=== PATIENT | female | born 1975 | race Caucasian/White ===

== ENCOUNTER 2024-11-15 09:37 | Emergency (ER) | payer OTHER, SELFPAY ==
[2024-11-15 09:42] VITALS: BP 119/78; PULSE 84; RESP 16; TEMP 36.6; O2SAT 100
--- NOTE | 2024-11-15 10:05 | ED.SKABFB ---
HPI - Skin/Abscess/Foreign Bdy General Chief complaint: Skin/Abscess/Foreign Body Stated complaint: Rash Source: patient Mode of arrival: ambulatory Limitations: no limitations History of Present Illness HPI narrative: 49-year-old female presented for complaint of a painful red rash to the left upper chest near under arm. States it started with itching, and the next day she noticed red painful lesions. Pain extends into the arm and the arm feels heavy. She reports general malaise and diarrhea recently. Also reports increased stress. Smokes 2 PPD. Related Data Allergies Allergy/AdvReac Type Severity Reaction Status Date / Time No Known Allergies Allergy Unverified 11/15/24 09:46 Review of Systems Review of Systems: CONSTITUTIONAL: Denies body aches, fever, chills, or sweats. EYES: Denies visual changes, redness, or discharge. ENT: Denies rhinorrhea, congestion CARDIOVASCULAR: Denies chest pain, palpitations, or edema. RESPIRATORY: Denies cough or dyspnea. GASTROINTESTINAL: Denies abdominal pain, nausea, vomiting, or diarrhea. SKIN: reports painful rash left chest MUSCULOSKELETAL: Denies back pain, joint pain, or myalgia. NEUROLOGIC: Denies headache, numbness, tingling, or weakness. [facility] Social History Social History (Updated 11/15/24 @ 10:11 by Isabella Torres, [employer]) Smoking packs per day: 2 Smoking cigarettes per day: 40.0 Smoking status: Current every day smoker Tobacco type: cigarettes Comments At time of signature, I have reviewed and agree with nursing past medical, surgical, social and family history unless otherwise noted. Please see nursing chart for further information. There is no relevant family history pertinent to the presenting complaint Exam Narrative: GENERAL: Well-appearing HEAD: Normocephalic, atraumatic. EYES: conjunctivae clear, and EOMI. ENT: Mucous membranes moist. Oropharynx without edema, erythema or lesions. NECK: Supple. No lymphadenopathy CHEST: Clear to auscultation. HEART: Regular rate and rhythm. SKIN: Warm, dry. Left upper chest at axilla with localized erythematous vesicles c/w zoster approx 5cm diameter. Tender to touch extending to forearm NEURO: Alert and oriented x3. Course Course Emergency Course: Patient is aware of diagnosis, understands and agrees to treatment plan. Anticipatory guidance given. Patient agrees to follow-up as directed and is aware of reasons to seek care at the emergency department. Portions of this record may have been created with voice recognition software Level of Care: Express Care Visit Vital Signs Vital signs: Vital Signs Temperature 97.8 F 11/15/24 09:42 Pulse Rate 84 11/15/24 09:42 Respiratory Rate 16 11/15/24 09:42 Blood Pressure 119/78 11/15/24 09:42 Pulse Oximetry 100 11/15/24 09:42 Oxygen Delivery Room Air 11/15/24 09:42 Temperature 97.8 F 11/15/24 09:42 Pulse Rate 84 11/15/24 09:42 Respiratory Rate 16 11/15/24 09:42 Blood Pressure 119/78 11/15/24 09:42 Pulse Oximetry 100 11/15/24 09:42 Oxygen Delivery Room Air 11/15/24 09:42 Reviewed MDM - Skin/Abscess/Foreign Bdy MDM Narrative Medical decision making narrative: Discussed physical exam findings c/w zoster left upper chest. Advised supportive measures and signs/symptoms to go to the ER. Pt is appropriate for outpt treatment and f/u. Differential Diagnosis Differential diagnosis: Likely abscess of skin or subcutaneous tissue, viral exanthem, dermatophytosis, urticaria, herpes zoster, cellulitis, eczema, insect bites, impetigo and contact dermatitis Discharge Plan Discharge Clinical Impression: Herpes zoster Patient Disposition: Home Condition: Stable Instructions: Antibiotic Form, Shingles (ED) Additional Instructions: Take medication as directed Keep the lesions covered until they are fully crusted over - you are contagious until they are dried Avoid contact with women or people who have not had chickenpox vaccination. Tylenol 1000mg every 8 hours as needed Follow up with your primary care provider next week. Go to the ER for worsening symptoms or concerns. Patient Language: Greenlandic Prescriptions: New valacyclovir 1 gram tablet 1,000 mg PO Q8H 7 Days Qty: 21 0RF Follow-up/Referrals: Magdiel,MD Ga [Primary Care Provider] - Stand Alone Forms: Work/School Release IP Time of Disposition: 10:08
--- OUTSIDE RECORDS SUMMARY | 2024-11-15 10:17 | XMS_ITS | Encounter Summary ---
Author Organization [facility] Healthcare Address [address] [place] [address] Care Team Providers Care Business And Services Instructor Name Role Phone Saturnino Mccrary MD Unavailable [phone] Ga Veloz MD Primary Care Provider [phone] Encounter Details Date Type Department Care Team (Late st Contact Info) Description 10/14/2024 Results Follow-Up [facility] Gastroenterology at [address] [place] [id number] Kole Ray, [address] [place] [address] Social History Tobacco Use Types Packs/Day Years Used Date Smoking Tobacco: Every Day Cigarettes 1.6 34.3 Started: 1990 Smokeless Tobacco: Never Alcohol Use Standard Drinks/Week Comments Not Currently 0 (1 standard drink = 0.6 oz pur e alcohol) had a glass of wine in october Social Connection and Isolat ion Panel [NHANES] Answer Date Recorded In a typical week, how many times do you talk on the phone with family, friends, or neighbors? More than three times a week 02/07/2020 How often do you get togethe r with friends or relatives? More than three times a week 02/07/2020 Attends Sabianism Services Not on file 02/06 Do you belong to any clubs o r organizations such as orthodoxy groups, unions, fraternal or athletic groups, or school groups? Yes 02/07/2020 Attends Club or Organization Meetings Not on padmini e 02/07/2020 Marital Status Not on file 02/07/2020 AUDIT-C Answer Date Recorded Q1: How often do you have a drink containing alc ohol? 2-4 times a month 10/12/2024 Q2: How many drinks containi ng alcohol do you have on a typical day when you are drinking? 5 or 6 10/12/2024 Frequency of Binge Drinking Not on file 07/2024 PHQ-2 Answer Date Recorded PHQ-2 Total Score (If total score is 3 or more points, staff should administer the PHQ-9) 0 05/04/2024 Personal Safety Answer Date Recorded Have you ever been in or are you currently in a harmful physical or emotional relationship or is someone making you feel afraid or unsafe? Denies 10/13/2024 Comments No Sex and Gender Information Value Date Recorded Sex Assigned at Not on file Legal Sex Female 8:03 PM [employer] Gender Identity Not on file Sexual Orientation Not on file documented as of this encounter Miscellaneous Notes * Result Encounter Note - Carl Patel MA - 10/18/2024 8:02 AM CDT Results have been mailed, recall scheduled * Result Encounter Note - Carl Patel MA - 10/14/2024 1:25 PM CDT Called pt at [id number] unable to lvm documented in this encounter Plan of Treatment Not on file documented as of this encounter Visit Diagnoses Not on filedocumented in this encounter Care Teams Business And Services Instructor Relationship Specialty Start Date End Date Ga Veloz MD [address] [place] [address] PCP - General Family Medicine 04/23/23 Saturnino Mccrary MD [address] [place] [address] Filling Station Attendant Obstetrics and Gynecology 02/08/20 documented as of this encounter
--- OUTSIDE RECORDS SUMMARY | 2024-11-15 10:17 | XMS_ITS | Encounter Summary ---
Author Organization [facility] Healthcare Address [address] [place] [address] Care Team Providers Care Teaching Aide Name Role Phone No, Physician Primary Care Provider [phone] Saturnino Mccrary MD Unavailable [phone] Ga Veloz MD Primary Care Provider [phone] Encounter Details Date Type Department Care Team (Late st Contact Info) Description 02/07/2020 Social Work [facility] [address] [place], [place] [phone] Kathy Artis, TR Social History Tobacco Use Types Packs/Day Years Used Date Smoking Tobacco: Every Day Cigarettes 1.6 15 Alcohol Use Standard Drinks/Week Comments Not Currently [...] than three times a week 02/07/2020 Attends Ep[employer]opalian Services Not on file 02/06 Do you belong to any clubs o r organizations such as baptist groups, unions, fraternal or athletic groups, or school groups? 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
--- OUTSIDE RECORDS SUMMARY | 2024-11-15 10:17 | XMS_ITS | Clinical Summary ---
Author Organization [facility] Address [address] [place] [address] Care Team Providers Care Handicrafts Teacher Name Role Phone Saturnino Mccrary MD Unavailable Dirk Veloz MD Primary Care Provider [phone] Allergies Active Allergy Reactions Criticality Noted Date Comments Sulfa (Sulfonamide Antibiotics) Rash Medium Medications No known medications Active Problems Problem Noted Date Diagnosed Date Family hx of colon cancer requiring screening co lonoscopy 05/28/2024 Screening for colon cancer 05/28/2024 Current smoker 04/23/2023 Assessment & Plan (05/04/2024 2:03 PM CDT): Recommend quitting now Anxiety 04/23/2023 Assessment & Plan (05/04/2024 2:03 PM CDT): Recommend therapy Sx are worsening at this time Annual physical exam 04/23/2023 Assessment & Plan (05/04/2024 2:03 PM CDT): Discussed lifestyle modifications, diet and exercise. Routine blood work ordered/reviewed today. Yearly vision and dental examinations. Assessment & Plan (04/23/2023 2:56 PM CDT): Discussed lifestyle modifications, diet and exercise. Routine blood work ordered/reviewed today. Yearly vision and dental examinations. Hirsutism 04/23/2023 Encounters Date Type Department Care Team Description 10/14/2024 Results Follow-Up [facility] Gastroenterology at [address] [place] [address] Kole Ray, 10/13/2024 11:00 AM CDT - 10/13/2024 11:30 AM CDT Surgery [address] [address] Kole Ray, DO COLON REMOVAL SNARE 10/13/2024 10:49 AM CDT Anesthesia Event [address] [address] Иван Fairbanks MD 10/13/2024 10:02 AM CDT - 10/13/2024 11:59 AM CDT Hospital Encounter [address] [address] Kole Ray, DO Family hx of colon cancer requiring screening colonoscopy; Screening for colon cancer Discharge Disposition: Discharge to home or self care 10/12/2024 Telephone [facility] Gastroenterology at [address] [place] [address] Veronica Berrios MA 09/30/2024 Orders Only [facility] Primary Care at [address] [address] Dirk Veloz MD Abnormal mammogram (Primary Dx) 09/27/2024 Orders Only [facility] Primary Care at [address] [address] Dirk Veloz MD Abnormal mammogram (Primary Dx) 09/23/2024 Telephone [facility] Primary Care at [address] [address] Dirk Veloz MD Additional Services Or Orders 09/09/2024 Results Follow-Up [facility] Primary Care at [address] [address] Dirk Veloz MD 09/08/2024 2:33 PM FARM DEMONSTRATOR - 09/08/2024 11:59 PM FARM DEMONSTRATOR Hospital Encounter [address] [address] Abnormal mammogram Discharge Disposition: Discharge to home or self care 09/08/2024 2:33 PM FARM DEMONSTRATOR - 09/08/2024 11:59 PM FARM DEMONSTRATOR Hospital Encounter [facility] [address] [place] [address] Abnormal mammogram Discharge Disposition: Discharge to home or self care 09/02/2024 Orders Only [facility] Primary Care at [address] [place] [address] Dirk Veloz MD Abnormal mammogram (Primary Dx) 08/30/2024 Results Follow-Up [facility] Primary Care at [address] [place] [address] Dirk Veloz MD 08/26/2024 2:25 PM FARM DEMONSTRATOR - 08/26/2024 11:59 PM FARM DEMONSTRATOR Hospital Encounter [facility] [address] [place] [address] Encounter for screening mammogram for malignant neoplasm of breast Discharge Disposition: Discharge to home or self care from Last 3 Months Immunizations Immunization Administration Dates Next Due Influenza, Unspecified 05/04/2024(Deferr ed: Patient Refused),04/23/2023(Deferred: Patient Refused),04/23/2022(Deferred: Patient Refused) Tdap 12/07/2019 Surgical History Surgery Date Site/Laterality Comments SECTION, LOW TRANSVERSE 10/18/2010 COLONOSCOPY 10/13/2024 Medical History Medical History Date Comments ANA PAULA (generalized anxiety disorder) Tobacco abuse Adenomatous colon polyp Family History Medical History Relation Name Comments Prostate cancer Father Hypertension Mother Lung cancer Mother Colon cancer Paternal Grandmother Endometriosis Sister [place] Breast cancer Neg Hx Relation Name Status Comments Father Alive Mother Alive Paternal Grandfather Paternal Grandmother Sister [place] Alive Social History Tobacco Use Types Packs/Day Years Used Date Smoking Tobacco: Every Day Cigarettes 1.6 34.3 Started: 1990 Smokeless Tobacco: Never Tobacco Cessation:Ready to Q uit: Not Asked; Counseling Given: Not Answered Alcohol Use Standard Drinks/Week Comments Not Currently [...] than three times a week 02/07/2020 Attends Worship Services Not on file 02/06 Do you belong to any clubs o r organizations such as rastafarian groups, unions, fraternal or athletic groups, or [...] on file Legal Sex Female 8:03 PM FARM DEMONSTRATOR Gender Identity Not on file Sexual Orientation Not on file Obstetrics History Para Term AB IAB SAB Ectopic Multiple Livin g Live Births 3 2 2 1 0 2 2 Date Outcome GA Total Labor Labor/2nd/3rd Weight Sex Type Anes PTL Unique A1 A5 Name Clin AB 2010 Term 37w 0d M CS-LT ranv Spinal Livin g 2019 Term 38w 6d 0h 02m 0h 02m 3.124 kg (6 lb 14.2 oz) F CS-LT ranv Spinal N Livin g 8 9 TAPPY ,GIRL Saturnino Keen MD Complications:None Delivery Location:This Facil ity ([facility] L AND D PROCEDURE) Last Filed Vital Signs Vital Sign Reading Time Taken Comments Blood Pressure 126/84 10/13/2024 11:53 AM CDT Pulse 71 10/13/2024 11:53 AM CDT Temperature 36.7 C (98 F) 10/13/2024 11:53 AM CDT Respiratory Rate 16 10/13/2024 11:53 AM CDT Oxygen Saturation 97% 10/13/2024 11:53 AM CDT Inhaled Oxygen Concentration - - Weight 54 kg (119 lb 0.8 oz) 10/13/2024 10:10 AM CDT Height 167.6 cm (5' 5.98 ) 10/13/2024 10:10 AM C DT Body Mass Index 19.22 10/13/2024 10:10 AM CDT Plan of Treatment Health Maintenance Due Date Last Done Comments Hepatitis C Screening 1975 Hepatitis B Screening 1995 Pneumococcal vaccine <65 (1 of 2 - PCV) 1996 Influenza Vaccine (Season Ended) 2025 Cervical Cancer Screening 04/23/2025 04/23/2020 Depression Screening 05/04/2025 05/04/2024, 04/23/20 Regular Well Visit/Exam 18-64 05/04/2025 05/04/2024, 04/23/2023 Breast Cancer Screening-Mammogram 09/08/2025 025, 08/26/2024 DTaP/Tdap/Td Vaccine (2 - Td or Tdap) 12/06/2029 Colon Cancer Screening-Colonoscopy 10/13/20342024 Procedures Procedure Name Priority Date/Time Associated Diagnosis Comments SURGICAL PATHOLOGY STAT 10/13/2024 1: 54 PM CDT Family hx of colon cancer requiring screening colonoscopy Screening for colon cancer COLON REMOVAL SNARE 10/13/2024 1 0:37 AM CDT Family hx of colon cancer requiring screening colonoscopy Screening for colon cancer COLONOSCOPY 10/13/2024 10:35 AM CDT POCT HCG, URINE Routine 10/13/2024 10:23 AM CDT US BREAST LEFT LIMITED Schedule Routine, Read Routine (OP Routine) 09/08/2024 3:47 PM FARM DEMONSTRATOR Abnormal mammogram DIAGNOSTIC MAMMOGRAM BILATERAL W AXEL Schedule Routine, Read Routine (OP Routine) 09/08/2024 2:56 PM FARM DEMONSTRATOR Abnormal mammogram SCREENING MAMMOGRAM BILATERAL W AXEL Schedule Routine, Read Routine (OP Routine) 08/26/2024 2:47 PM FARM DEMONSTRATOR Encounter for screening mammogram for malignant neoplasm of breast HM PAP SMEAR WITH HPV Routine 04/23/2020 from Last 3 Months or Most Recently Relevant to Health Maintenance Results * Surgical pathology (10/13/2024 1:54 PM CDT) Tissue (Polyp(s), colon/colorectal, esophageal, gastric) 10/13/2024 11:17 AM CDT Narrative PATHOLOGY [facility] - 10/14/2024 12:41 PM CDT EPIC results best viewed via link to PDF [facility] Department of Pathology [address] [place] [address] Note to Patients: This report may contain a detailed description of human tissue sent by a health care provider to the laboratory for pathologic evaluation. The content of this report is essential for diagnosis and may provide important critical findings. This information may be unfamiliar to patients to review without a medical professional present. It is advised that the patient review this report in the presence of a health care provider who can answer questions and explain the details. Final Report Patient Name: KIM ACEVEDO Address: [address] [place], [place] [id number] Gender: F : 1975 (Age: 49) Service: Gastro Location: [facility] Hospital #: [id number] Patient Type: [facility] Taken: 10/13/2024 Received: 10/13/2024 Accessioned: 10/13/2024 Reported: 10/14/2024 Physician(s):Dr. Kole Ray, D.O. Diagnosis: Colon, cecum and descending, biopsies: - Tubular adenoma fragments. - No evidence of high-grade dysplasia or malignancy. Wayne John MD Report Electronically Reviewed and Signed Out By Wayne John MD 10/14/2024 12:41:38 Specimen(s) Received: A: Cecum colon polyp x 1, descending colon polyp x 1 Microscopic Description: Microscopic examination shows four polypoid fragments of colonic mucosa, three of which show adenomatous mucosal changes consistent with tubular adenoma fragments. There is no evidence of high-grade dysplasia or malignancy. Clinical History: Family history of colon cancer. Screening colonoscopy. Gross Description: The specimen is submitted in a single formalin filled container labeled KIM TAPPY and cecum colon polyp x1, descending colon polyp x1 . It is 4 fragments of costello tissue between 1 and 4 mm. All in one cassette. Xiang Mcbride R.N., P.A./Rambo Boswell M.D. REPORT IMAGES AND SCANNED DOCUMENTS, IF INCLUDED, ONLY VIEWABLE IN PDF VERSION OF REPORT The performance characteristics of some immunohistochemical stains, fluorescence in-situ hybridization tests and immunophenotyping by flow cytometry cited in this report (if any) were determined by the Surgical Pathology Department at [facility] as part of an ongoing senior quality technician program and in compliance with federally mandated regulations drawn from the Clinical Laboratory Improvement Act of 1988 (CLIA '88). Some of these tests rely on the use of analyte specific reagents and are subject to specific labeling requirements by the US Food and Drug Administration. Such diagnostic tests may only be performed in a facility that is certified by the Department of Health and Human Services as a high complexity laboratory under CLIA '88. The FDA has determined that such clearance or approval is not necessary. This test is used for clinical purposes. It should not be regarded as investigational or for research. Nevertheless, federal rules concerning the medical use of analyte specific reagents require that the following disclaimer be attached to the report: This test was developed and its performance characteristics determined by the Surgical Pathology Department [facility]. It has not been cleared or approved by the U. S. Food and Drug Administration. Note for decalcified specimens: This assay has not been validated on decalcified tissues. Results should be interpreted with caution given the possibility of false negativity on decalcified specimens us Kole Ray DO LAB PATHOLOGY ORDERABLES Final Result PATHOLOGY [facility] [address] [place], [place] [address] * Colonoscopy (10/13/2024 10:35 AM CDT) Anatomical Region Laterality Modality Other Narrative Procedure Note Kole Ray DO - 10/13/2024 10:35 AM CDT [facility] Patient Name: Kim Acevedo Procedure Date: 10/13/2024 10:35 AM Date of : 1975 Admit Type: Outpatient Age: 49 Gender: Female Attending MD: Kole Ray D.O. Room: [facility] ENDOSCOPY ROOM 3 Note Status: Finalized Patient Profile: Refer to note in patient chart for documentation of history and physical. Procedure: Colonoscopy Indications: Screening for colorectal malignant neoplasm, Thisis the patient's first colonoscopy Referring MD: Dirk Veloz M.D. Providers: Kole Ray D.O. Impression: - The examined portion of the ileum was normal. - One 5 mm polyp in the cecum, removed with a cold snare. Resected and retrieved. Clip (MRconditional) was placed. Clip php architect: [id number]. - One 4 mm polyp in the proximal descending colon, removed with a cold snare. Resected andretrieved. - Diverticulosis in the sigmoid colon. Recommendation: - Discharge patient to home. - Resume previous diet. - Continue present medications. - Await pathology results. - Repeat colonoscopy in 5 years for surveillance. - Return to primary care physician PRN. Medicines: Monitored Anesthesia Care Complications: No immediate complications. Estimated Blood Loss: Estimated blood loss: none. Procedure: Pre-Anesthesia Assessment: - As per anesthesia. The benefits, risks and alternatives of theprocedure and sedation were discussed and informed consentwas obtained. All questions were answered. Please referto the signed informed consent document in the medical record. The bowel preparation used was Miralax and bisacodyl tablets via split dose instruction. The scope was passed under direct vision. The Pediatric Colonoscope [id number] was introducedthrough the anus and advanced to the 5 cm into the ileum.The colonoscopy was performed without difficulty. The patient tolerated the procedure well. The qualityof the bowel preparation was adequate. The terminal ileum, ileocecal valve, appendiceal orifice, and rectum were photographed. Findings: The perianal and digital rectal examinations were normal. The terminal ileum appeared normal. A 5 mm polyp was found in the cecum. The polyp was sessile. The polyp was removed with a cold snare. Resection and retrieval were complete.To prevent bleeding post-intervention, one hemostatic clip wassuccessfully placed (MR conditional). Clip php architect: [email or web address]. Therewas no bleeding at the end of the procedure. A 4 mm polyp was found in the proximal descending colon. The polypwas removed with a cold snare. Resection and retrieval were complete. Many diverticula were found in the sigmoid colon. No additional abnormalities were found on retroflexion. Electronically signed by Kole Ray M.D. Kole Ray D.O. 10/13/2024 11:21:04 AM Number of Addenda: 0 Note Initiated On: 10/13/2024 10:35 AM Procedure Code(s): --- Professional --- 07324, Colonoscopy, flexible; with removal of tumor(s), polyp(s), or other lesion(s) by snare technique --- Technical --- 71089, Colonoscopy, flexible; with removal of tumor(s), polyp(s), or other lesion(s) by snare technique Diagnosis Code(s): --- Professional --- Z12.11, Encounter for screening for malignant neoplasm of colon D12.0, Benign neoplasm of cecum D12.4, Benign neoplasm of descending colon K57.30, Diverticulosis of large intestine without perforation orabscess without bleeding --- Technical --- Z12.11, Encounter for screening for malignant neoplasm of colon D12.0, Benign neoplasm of cecum D12.4, Benign neoplasm of descending colon K57.30, Diverticulosis of large intestine without perforation orabscess without bleeding CPT copyright 2020 [employer]. All rights reserved. The codes documented in this report are preliminary and upon application security architect reviewmay be revised to meet current compliance requirements. Recognized by the [employer] for promoting quality in endoscopy us Kole Ray DO ENDOSCOPY PROCEDURES Final Res ult * POCT hCG, urine (10/13/2024 10:23 AM CDT) HCG, ur, POC Negative Negative Lot Number [id number] QC Backgroud Clear Acceptable QC Control Line Acceptable Urine 10/13/2024 10:2 3 AM CDT us Kole Ray DO POINT OF CARE TEST ORDERABLES Final Result * US Breast Left Limited (09/08/2024 3:47 PM FARM DEMONSTRATOR) Anatomical Region Laterality Modality Breast Left Ultrasound 09/08/2024 3:57 PM FARM DEMONSTRATOR Impressions 09/08/2024 3:57 PM FARM DEMONSTRATOR No persistent asymmetry is seen within the right breast. In the left breast, the mammographic lesion seen in the upper outer breast posteriorly and in the upper inner left breast on the craniocaudal view as well as a sonographic lesion at the 11 o'clock position, 5 cm from nipple are probably benign. A follow-up left diagnostic mammogram and ultrasound are recommended in 6 months. BI-RADS: 3 - Probably benign The patient has been or will be contacted. The patient will be entered into a reminder system with a target due date of 6 months for her next examinations. Electronically signed by: Janelle Wilson M.D. Narrative 09/08/2024 3:57 PM FARM DEMONSTRATOR EXAMINATION: DIAGNOSTIC MAMMOGRAM BILATERAL W AXEL, US BREAST LEFT LIMITED ORDERING HEALTHCARE PROVIDER: DIRK VELOZ HISTORY: Abnormal screening mammogram. COMPARISON: 08/26/2024 TECHNIQUE: CC and MLO spot compression and lateral views of the Bilateral breasts were obtained with digital technique using breast tomosynthesis with C view. Computer aided detection was utilized. This was followed by targeted left breast sonography. FINDINGS: There are scattered areas of fibroglandular density. Additional views of both breasts were obtained. No persistent asymmetry is seen in the right breast on the MLO view. Within the left breast, there are persistent focal asymmetries in the upper outer left breast posteriorly and in the posterior medial left breast. Further evaluation was obtained with sonography. Targeted left breast ultrasound: At the 11 o'clock position of the left breast, 5 cm from the nipple, there is a 4 mm hypoechoic lesion within dense breast tissue which is likely a complex cyst. It is unlikely that this corresponds to the mammographic findings. The mammographic and sonographic lesions in the left breast will be classified as probably benign. us Dirk Veloz MD IMG MAMMO PROCEDURES Final Resul t * Diagnostic Mammogram Bilateral W Axel (09/08/2024 2:56 PM FARM DEMONSTRATOR) Anatomical Region Laterality Modality Breast Bilateral Mammography 09/08/2024 3:57 PM FARM DEMONSTRATOR Impressions 09/08/2024 3:57 PM FARM DEMONSTRATOR No persistent asymmetry is seen within the right breast. In the left breast, the mammographic lesion seen in the upper outer breast posteriorly and in the upper inner left breast on the craniocaudal view as well as a sonographic lesion at the 11 o'clock position, 5 cm from nipple are probably benign. A follow-up left diagnostic mammogram and ultrasound are recommended in 6 months. BI-RADS: 3 - Probably benign The patient has been or will be contacted. The patient will be entered into a reminder system with a target due date of 6 months for her next examinations. Electronically signed by: Ayan Caputo 09/08/2024 3:57 PM FARM DEMONSTRATOR EXAMINATION: DIAGNOSTIC MAMMOGRAM BILATERAL W AXEL, US BREAST LEFT LIMITED ORDERING HEALTHCARE PROVIDER: DIRK VELOZ HISTORY: Abnormal screening mammogram. COMPARISON: 08/26/2024 TECHNIQUE: CC and MLO spot compression and lateral views of the Bilateral breasts were obtained with digital technique using breast tomosynthesis with C view. Computer aided detection was utilized. This was followed by targeted left breast sonography. FINDINGS: There are scattered areas of fibroglandular density. Additional views of both breasts were obtained. No persistent asymmetry is seen in the right breast on the MLO view. Within the left breast, there are persistent focal asymmetries in the upper outer left breast posteriorly and in the posterior medial left breast. Further evaluation was obtained with sonography. Targeted left breast ultrasound: At the 11 o'clock position of the left breast, 5 cm from the nipple, there is a 4 mm hypoechoic lesion within dense breast tissue which is likely a complex cyst. It is unlikely that this corresponds to the mammographic findings. The mammographic and sonographic lesions in the left breast will be classified as probably benign. us Dirk Veloz MD IMG MAMMO PROCEDURES Final Resul t * (ABNORMAL) SCREENING MAMMOGRAM BILATERAL W AXEL (08/26/2024 2:47 PM FARM DEMONSTRATOR) Anatomical Region Laterality Modality Breast Bilateral Mammography 08/26/2024 4:01 PM FARM DEMONSTRATOR Impressions 08/26/2024 4:01 PM FARM DEMONSTRATOR Bilateral breast asymmetries require further evaluation with additional mammographic images and possible sonography. BI-RADS: BI-RADS Category 0: Incomplete - Need Additional Imaging Evaluation. The patient has been or will be contacted Electronically signed by: Janelle Wilson M.D. Narrative 08/26/2024 4:01 PM FARM DEMONSTRATOR EXAMINATION: SCREENING MAMMOGRAM BILATERAL W AXEL ORDERING HEALTHCARE PROVIDER: DIRK VELOZ HISTORY: Routine screening mammography. COMPARISON: None TECHNIQUE: CC and MLO views of the bilateral breasts were obtained with digital technique using breast tomosynthesis with C view. Computer aided detection was utilized. FINDINGS: DENSITY: There are scattered areas of fibroglandular density. BREASTS: There is a focal asymmetry at the 1 to 2 o'clock position of the left breast posteriorly. There is also an asymmetry in the slightly medial posterior left breast seen on the craniocaudal view. There is also an asymmetry in the superior right breast seen on the MLO view, middle depth. There are no other suspicious masses, suspicious calcifications, or other suspicious findings in either breast. There has been no other suspicious interval change. Dirk Veloz MD IMG MAMMO PROCEDURES Final Resul t * HM PAP SMEAR WITH HPV (04/23/2020) Historical Provider HEALTH MAINTENANCE Final Result from Last 3 Months or Most Recently Relevant to Health Maintenance Insurance Advance Directives For more information, please contact: [phone] * Full Code (Latest Code Status on File) Date Activated Date Inactivated Comments 10/13/2024 10:07 AM 10/13/2024 4:04 PM * Full Code Date Activated Date Inactivated Comments 10/13/2024 10:07 AM 10/13/2024 10:07 AM * Full Code Date Activated Date Inactivated Comments 02/06/2020 7:01 AM 02/08/2020 2:16 PM * Full Code Date Activated Date Inactivated Comments 02/06/2020 2:14 AM 02/06/2020 7:01 AM Full CPR in case of cardiopulmonary arrest Care Teams Handicrafts Teacher Relationship Specialty Start Date End Date Dirk Veloz MD [address] [place] [address] PCP - General Family Medicine 04/23/23 Saturnino Mccrary MD [address] [place] [address] Yarn Spooler Obstetrics and Gynecology 02/08/20
--- OUTSIDE RECORDS SUMMARY | 2024-11-15 10:17 | XMS_ITS | Referral Summary ---
Author Organization [facility] Address [address] [place] [address] Care Team Providers Care Law Instructor Name Role Phone Saturnino Mccrary MD Unavailable [phone] Dirk Veloz MD Primary Care Provider Encounters Date Type Department Care Team Description 10/14/2024 Results Follow-Up [facility] Gastroenterology at [address] [place] [address] Kole Ray DO 10/13/2024 10:49 AM CDT Anesthesia Event [address] [address] Иван Fairbanks MD 10/13/2024 11:00 AM CDT - 10/13/2024 11:30 AM CDT Surgery [address] [address] Kole Ray, DO COLON REMOVAL SNARE 10/13/2024 10:02 AM CDT - 10/13/2024 11:59 AM CDT Hospital Encounter [address] [address] Kole Ray, DO Family hx of colon cancer requiring screening colonoscopy; Screening for colon cancer Discharge Disposition: Discharge to home or self care 10/12/2024 Telephone [facility] Gastroenterology at [address] [place] [address] Veronica Berrios MA 09/30/2024 Orders Only [facility] Primary Care at [address] [address] Dirk Veloz MD Abnormal mammogram (Primary Dx) 09/27/2024 Orders Only [facility] Primary Care at [address] [address] Dirk Veloz MD Abnormal mammogram (Primary Dx) 09/23/2024 Telephone [facility] Primary Care at [address] [address] Dirk Veloz MD Additional Services Or Orders 09/09/2024 Results Follow-Up [facility] Primary Care at [address] [address] Dirk Veloz MD 09/08/2024 2:33 PM BOARD CERTIFIED BEHAVIORAL ANALYST - 09/08/2024 11:59 PM BOARD CERTIFIED BEHAVIORAL ANALYST Hospital Encounter [address] [address] Abnormal mammogram Discharge Disposition: Discharge to home or self care 09/08/2024 2:33 PM BOARD CERTIFIED BEHAVIORAL ANALYST - 09/08/2024 11:59 PM BOARD CERTIFIED BEHAVIORAL ANALYST Hospital Encounter [address] [address] Abnormal mammogram Discharge Disposition: Discharge to home or self care 09/02/2024 Orders Only [facility] Primary Care at [address] [address] Dirk Veloz MD Abnormal mammogram (Primary Dx) 08/30/2024 Results Follow-Up [facility] Primary Care at [address] [address] Dirk Veloz MD 08/26/2024 2:25 PM BOARD CERTIFIED BEHAVIORAL ANALYST - 08/26/2024 11:59 PM BOARD CERTIFIED BEHAVIORAL ANALYST Hospital Encounter [address] [address] Encounter for screening mammogram for malignant neoplasm of breast Discharge Disposition: Discharge to home or self care from Last 3 Months Allergies Active Allergy Reactions Criticality Noted Date [...] Yearly vision and dental examinations. Hirsutism 04/23/2023 Immunizations Immunization Administration Dates Next Due Influenza, Unspecified 05/04/2024(Deferr ed: Patient Refused),04/23/2023(Deferred: Patient Refused),04/23/2022(Deferred: Patient Refused) Tdap 12/07/2019 Social History Tobacco Use Types Packs/Day Years [...] than three times a week 02/07/2020 Attends Druze Services Not on file 02/06 Do you belong to any clubs o r organizations such as latter day groups, unions, fraternal or athletic groups, or [...] on file Legal Sex Female 8:03 PM BOARD CERTIFIED BEHAVIORAL ANALYST Gender Identity Not on file Sexual Orientation Not on file Last Filed Vital Signs Vital Sign Reading [...] 10/13/2024 10:10 AM CDT Plan of Treatment Not on file Procedures Procedure Name Priority Date/Time Associated Diagnosis [...] Read Routine (OP Routine) 09/08/2024 3:47 PM BOARD CERTIFIED BEHAVIORAL ANALYST Abnormal mammogram DIAGNOSTIC MAMMOGRAM BILATERAL W AXEL Schedule Routine, Read Routine (OP Routine) 09/08/2024 2:56 PM BOARD CERTIFIED BEHAVIORAL ANALYST Abnormal mammogram SCREENING MAMMOGRAM BILATERAL W AXEL Schedule Routine, Read Routine (OP Routine) 08/26/2024 2:47 PM BOARD CERTIFIED BEHAVIORAL ANALYST Encounter for screening mammogram for malignant neoplasm of breast HM PAP SMEAR WITH HPV Routine 04/23/2020 from Last 3 Months or Most Recently Relevant to Health Maintenance Results * Surgical pathology (10/13/2024 1:54 PM CDT) Tissue (Polyp(s), colon/colorectal, esophageal, gastric) 10/13/2024 11:17 AM CDT Narrative PATHOLOGY [facility] - 10/14/2024 12:41 PM CDT EPIC results best viewed via link to PDF [facility] Department of Pathology [address] [place] [address] Note to Patients: This report may contain [...] Final Report Patient Name: KIM ACEVEDO Address: [address] [place] [id number] Gender: F : 1975 (Age: 49) Service: Gastro Location: [facility] #: [id number] Patient Type: [facility] Taken: 10/13/2024 Received: 10/13/2024 Accessioned: 10/13/2024 Reported: 10/14/2024 Physician(s):Dr. Kole Ray D.O. Diagnosis: Colon, cecum and descending, biopsies: [...] and 4 mm. All in one cassette. Xinag Mcbride R.N., P.A./Rambo Boswell M.D. REPORT IMAGES AND SCANNED DOCUMENTS, IF INCLUDED, ONLY VIEWABLE IN PDF VERSION OF REPORT The performance characteristics of some immunohistochemical stains, fluorescence in-situ hybridization tests and immunophenotyping by flow cytometry cited in this report (if any) were determined by the Surgical Pathology Department at [facility] as part of an ongoing research quality assurance analyst program and in compliance with federally mandated [...] characteristics determined by the Surgical Pathology Department [facility]. It has not been cleared or approved by the U. S. Food and Drug Administration. Note for decalcified specimens: This assay has not been validated on decalcified tissues. Results should be interpreted with caution given the possibility of false negativity on decalcified specimens Kole Ray DO LAB PATHOLOGY ORDERABLES Final Result PATHOLOGY [facility] [address] [id number] * Colonoscopy (10/13/2024 10:35 AM CDT) Anatomical Region Laterality Modality Other Narrative Procedure Note Kole Ray DO - 10/13/2024 10:35 AM CDT [facility] Patient Name: Kim Tappy Procedure Date: 10/13/2024 10:35 AM Date of : 1975 Admit Type: Outpatient Age: 49 Gender: Female Attending MD: Kole Ray D.O. Room: [facility] ENDOSCOPY ROOM 3 Note Status: Finalized Patient [...] and retrieved. Clip (MRconditional) was placed. Clip supervisor grove: Soundwave. - One 4 mm polyp in the [...] under direct vision. The Pediatric Colonoscope [id number] was introducedthrough the anus and advanced to [...] hemostatic clip wassuccessfully placed (MR conditional). Clip supervisor grove: Soundwave. Therewas no bleeding at the end of [...] 10:35 AM Procedure Code(s): --- Professional --- 03165, Colonoscopy, flexible; with removal of tumor(s), polyp(s), or other lesion(s) by snare technique --- Technical --- 93333, Colonoscopy, flexible; with removal of tumor(s), polyp(s), [...] perforation orabscess without bleeding CPT copyright 2020 [employer]. All rights reserved. The codes documented in this report are preliminary and upon sales representative metals reviewmay be revised to meet current compliance requirements. Recognized by the [employer] for promoting quality [...] US Breast Left Limited (09/08/2024 3:47 PM BOARD CERTIFIED BEHAVIORAL ANALYST) Anatomical Region Laterality Modality Breast Left Ultrasound 09/08/2024 3:57 PM BOARD CERTIFIED BEHAVIORAL ANALYST Impressions 09/08/2024 3:57 PM BOARD CERTIFIED BEHAVIORAL ANALYST No persistent asymmetry is seen within the [...] Janelle Wilson M.D. Narrative 09/08/2024 3:57 PM BOARD CERTIFIED BEHAVIORAL ANALYST EXAMINATION: DIAGNOSTIC MAMMOGRAM BILATERAL W AXEL, US [...] Mammogram Bilateral W Axel (09/08/2024 2:56 PM BOARD CERTIFIED BEHAVIORAL ANALYST) Anatomical Region Laterality Modality Breast Bilateral Mammography 09/08/2024 3:57 PM BOARD CERTIFIED BEHAVIORAL ANALYST Impressions 09/08/2024 3:57 PM BOARD CERTIFIED BEHAVIORAL ANALYST No persistent asymmetry is seen within the [...] Janelle Wilson M.D. Narrative 09/08/2024 3:57 PM BOARD CERTIFIED BEHAVIORAL ANALYST EXAMINATION: DIAGNOSTIC MAMMOGRAM BILATERAL W AXEL, US [...] breast will be classified as probably benign. Dirk Veloz MD IMG MAMMO PROCEDURES Final Resul t * (ABNORMAL) SCREENING MAMMOGRAM BILATERAL W AXEL (08/26/2024 2:47 PM BOARD CERTIFIED BEHAVIORAL ANALYST) Anatomical Region Laterality Modality Breast Bilateral Mammography 08/26/2024 4:01 PM BOARD CERTIFIED BEHAVIORAL ANALYST Impressions 08/26/2024 4:01 PM BOARD CERTIFIED BEHAVIORAL ANALYST Bilateral breast asymmetries require further evaluation with additional mammographic images and possible sonography. BI-RADS: BI-RADS Category 0: Incomplete - Need Additional Imaging Evaluation. The patient has been or will be contacted Electronically signed by: Janelle Wilson M.D. Narrative 08/26/2024 4:01 PM BOARD CERTIFIED BEHAVIORAL ANALYST EXAMINATION: SCREENING MAMMOGRAM BILATERAL W AXEL ORDERING [...] Most Recently Relevant to Health Maintenance Insurance [facility] Advance Directives For more information, please contact: [phone] * Full Code (Latest Code Status on [...] in case of cardiopulmonary arrest Care Teams Law Instructor Relationship Specialty Start Date End Date Dirk Veloz MD [address] [facility] [address] [place] [address] PCP - General Family Medicine 04/23/23 Saturnino Mccrary MD [address] [facility] [address] [facility] [address] [place] [address] Forms Obstetrics and Gynecology 02/08/20
== END 2024-11-15 10:10 | disposition home or self-care (01) ==
PROVIDERS: Emergency Provider Nurse Practitioner Family; PCP Family Medicine
DX: B02.9 Zoster without complications (principal); F17.210 Nicotine dependence, cigarettes, uncomplicated
CPT/HCPCS: 99203; G0463

== ENCOUNTER 2024-11-23 13:20 | Emergency (ER) | payer OTHER, SELFPAY ==
--- NOTE | 2024-11-23 13:26 | ED_ITS ---
HPI - URI/Sore Throat General Chief Complaint: Upper Respiratory Infection Stated Complaint: Sore throat Time Seen by Provider: 11/23/24 13:26 Source: patient Mode of arrival: ambulatory Limitations: no limitations History of Present Illness HPI Narrative: Kim is a 49-year-old female patient presenting to the clinic today with complaints of sore throat. She reports she is mostly has sore throat on the right side. Also complaining of some pain below the right ear. Symptoms started 2 days ago. Has had some chills but denies fever or body aches. Recently was treated for shingles and just finished her acyclovir. Related Data Allergies Allergy/AdvReac Type Severity Reaction Status Date / Time Sulfa (Sulfonamide Allergy Mild Rash Verified 11/23/24 13:43 Antibiotics) Review of Systems Review of Systems: Pertinent positives per HPI. Patient denies any fever, chills, rash, headache, visual changes, dizziness, cough, shortness of breath, chest pain, palpitations, nausea, vomiting, diarrhea, constipation, abdominal pain, or any urinary issues. PMFSH Social History Social History Smoking packs per day: 2 Smoking cigarettes per day: 40.0 Smoking status: Current every day smoker Tobacco type: cigarettes Comments At the time of my signature, I reviewed and agree with the nursing past medical, surgical, social, and family history. There is no relevant family history pertinent to the patient complaint. Exam Narrative: General: Well-developed, well nourished, in no apparent distress Head: Normocephalic, atraumatic Eyes: Pupils equally round and reactive to light bilaterally, EOM intact, sclera and conjunctive clear, no discharge, lids normal Ears: TMs intact and congestion, tenderness to palpation over the right eustachian tube, ear canals clear, no drainage, grossly hearing normal. Nose: Nares patent, clear nasal discharge, no inflammation, no sinus tenderness. Mouth: Oral pharynx red with bilateral tonsillar swelling right greater the left without lesions or masses, good dentition, MMM. Neck: Supple, trachea midline, no enlargement of anterior or posterior cervical nodes, no thyroid masses or goiter palpable. Cardio: Regular rate and rhythm, s1 and s2 normal, no murmur appreciated. Resp: Clear to auscultation bilaterally, no rhonchi, rales, wheezing or rubs Course Course Emergency Course: Portions of this record may have been created with voice recognition software. Level of Care: Express Care Visit Vital Signs Vital signs: Vital Signs Temperature 37.1 C 11/23/24 13:30 Pulse Rate 97 11/23/24 13:30 Respiratory Rate 16 11/23/24 13:30 Blood Pressure 125/83 11/23/24 13:30 Pulse Oximetry 99 11/23/24 13:30 Oxygen Delivery Room Air 11/23/24 13:30 Temperature 37.1 C 11/23/24 13:30 Pulse Rate 97 11/23/24 13:30 Respiratory Rate 16 11/23/24 13:30 Blood Pressure 125/83 11/23/24 13:30 Pulse Oximetry 99 11/23/24 13:30 Oxygen Delivery Room Air 11/23/24 13:30 Vital signs reviewed MDM - URI/Sore Throat MDM Narrative Medical decision making narrative: At the time of visit patient is resting comfortably on the exam table. Patient appears to be nontoxic. Labs: Strep test was negative in the clinic today. We will send strep for culture. Plan: I suspect patient has pharyngitis/eustachian tube dysfunction. Prescription for prednisone was sent to the pharmacy. Supportive measures were discussed with the patient and they voiced understanding discharge instructions and agrees to treatment plan. Return precautions reviewed Differential Diagnosis Differential diagnosis: Likely upper respiratory infection, otitis media, sinusitis, viral infection, bronchitis, influenza, pharyngitis and other (COVID) Lab Data Labs: Lab Results 11/23/24 Range/Units 13:36 POC Grp A Strep Screen Negative (Negative) Discharge Plan Discharge Clinical Impression: Acute dysfunction of right eustachian tube Pharyngitis Qualifiers: Pharyngitis/tonsillitis etiology: unspecified etiology Qualified Code(s): J02.9 - Acute pharyngitis, unspecified Patient Disposition: Home Condition: Stable Instructions: Antibiotic Form, Pharyngitis (ED), Earache (ED) Additional Instructions: Strep test was negative in the clinic today. We will send strep for culture if this comes back positive we will contact you in place you on antibiotics at that time. Take prescription medications only as prescribed-prednisone Increase fluids and stay well hydrated Tylenol/motrin for pain/fever Flonase and OTC antihistamines as directed Vicks vapor rub to open sinuses Sinus rinses for congestion Cepacol spray, cough drops, throat lozenges, warm tea with honey/lemon, gargle salt water to soothe throat BRAT diet for diarrhea Clear liquids x 24 hours then advance as tolerated for nausea/vomiting Go to the ED if you develop a worsening in your condition- high fever not controlled by Tylenol or Motrin, dehydration, weakness, lethargy, shortness of breath, or chest pain. Follow up with your PCP in 3-5 days if symptoms persist. Patient Language: Tamazight Prescriptions: New prednisone 20 mg tablet 40 mg PO DAILY 5 Days Qty: 10 0RF Follow-up/Referrals: Magdiel,MD Ga [Primary Care Provider] - Time of Disposition: 13:48 Quality NIHSS Nursing Documentation ED NIHSS nursing documentation: reviewed/agree
[2024-11-23 13:30] VITALS: BP 125/83; PULSE 97; RESP 16; TEMP 37.1; O2SAT 99
--- OUTSIDE RECORDS SUMMARY | 2024-11-23 13:43 | XMS_ITS | Encounter Summary ---
Author Organization [facility] Healthcare Address [address] [place] [address] Care Team Providers Care Senior Quality Manager Name Role Phone No, Physician Primary Care Provider [phone] Saturnino Mccrary MD Unavailable [phone] Ga Veloz MD Primary Care Provider [phone] Encounter Details Date Type Department Care Team (Late st Contact Info) Description 02/07/2020 Social Work [facility] Warm Hand Off Program [address] [place], [place] [phone] Kathy Artis, TR Social History Tobacco Use [...] than three times a week 02/07/2020 Attends Jewish Services Not on file 02/06 Do you belong to any clubs o r organizations such as sikh groups, unions, fraternal or athletic groups, or school groups? Yes 02/07/2020 Attends Club or Organization Meetings Not on padmini e 02/07/2020 Marital Status Not on file 02/07/2020 Comments No Sex and Gender Information Value Date Recorded Sex Assigned at Not on file Legal Sex Female 8:03 PM BUSINESS SOLUTIONS DIRECTOR Gender Identity Not on file Sexual Orientation Not on file documented as of this encounter Plan of Treatment Not on file documented as of this encounter Visit Diagnoses Not on filedocumented in this encounter Care Teams Senior Quality Manager Relationship Specialty Start Date End Date No, Physician PCP - General 09/27/19 04/22/23 Ga Veloz MD [address] [facility] [address] [place] [address] PCP - General Family Medicine 04/23/23 Saturnino Mccrary MD [address] [facility] [address] [place] [address] Metal Cnc Operator Obstetrics and Gynecology 02/08/20 documented as of this encounter
--- OUTSIDE RECORDS SUMMARY | 2024-11-23 13:43 | XMS_ITS | Referral Summary ---
Author Organization [facility] Address [address] [place] [address] Care Team Providers Care Systems Development Manager Name Role Phone Saturnino Mccrary MD Unavailable [phone] Dirk Veloz MD Primary Care Provider [phone] Encounters Date Type Department Care Team Description 10/14/2024 Results Follow-Up [facility] Gastroenterology at [address] [place] [address] Kole Ray DO 10/13/2024 10:49 AM CDT Anesthesia Event [address] [address] Иван Fairbanks MD 10/13/2024 11:00 AM CDT - 10/13/2024 11:30 AM CDT Surgery [address] [address] Kole Ray, DO COLON REMOVAL SNARE 10/13/2024 10:02 AM CDT - 10/13/2024 11:59 AM CDT Hospital Encounter [address] [address] Kole Ray, DO Family hx of colon cancer requiring screening colonoscopy; Screening for colon cancer Discharge Disposition: Discharge to home or self care 10/12/2024 Telephone [facility] Gastroenterology at [address] [place] [address] Veronica Berrios MA 09/30/2024 Orders Only [facility] Primary Care at [address] [address] Dirk Veloz MD Abnormal mammogram (Primary Dx) 09/27/2024 Orders Only [facility] Primary Care at [address] [address] Dirk Veloz MD Abnormal mammogram (Primary Dx) 09/23/2024 Telephone [facility] Primary Care at [address] [address] Dirk Veloz MD Additional Services Or Orders 09/09/2024 Results Follow-Up [facility] Primary Care at [address] [address] Dirk Veloz MD 09/08/2024 2:33 PM HEM INSPECTOR - 09/08/2024 11:59 PM HEM INSPECTOR Hospital Encounter [address] [address] Abnormal mammogram Discharge Disposition: Discharge to home or self care 09/08/2024 2:33 PM HEM INSPECTOR - 09/08/2024 11:59 PM HEM INSPECTOR Hospital Encounter [address] [address] Abnormal mammogram Discharge Disposition: Discharge to home or self care 09/02/2024 Orders Only [facility] Primary Care at [address] [address] Dirk Veloz MD Abnormal mammogram (Primary Dx) 08/30/2024 Results Follow-Up [facility] Primary Care at [address] [address] Dirk Veloz MD 08/26/2024 2:25 PM HEM INSPECTOR - 08/26/2024 11:59 PM HEM INSPECTOR Hospital Encounter [address] [address] Encounter for screening mammogram for malignant neoplasm [...] Date Smoking Tobacco: Every Day Cigarettes 1.6 34.4 Started: 1990 Smokeless Tobacco: Never Tobacco Cessation:Ready [...] than three times a week 02/07/2020 Attends [employer] Services Not on file 02/06 Do you [...] on file Legal Sex Female 8:03 PM HEM INSPECTOR Gender Identity Not on file Sexual Orientation [...] Read Routine (OP Routine) 09/08/2024 3:47 PM HEM INSPECTOR Abnormal mammogram DIAGNOSTIC MAMMOGRAM BILATERAL W AXEL Schedule Routine, Read Routine (OP Routine) 09/08/2024 2:56 PM HEM INSPECTOR Abnormal mammogram SCREENING MAMMOGRAM BILATERAL W AXEL Schedule Routine, Read Routine (OP Routine) 08/26/2024 2:47 PM HEM INSPECTOR Encounter for screening mammogram for malignant neoplasm of breast HM PAP SMEAR WITH HPV Routine 04/23/2020 from Last 3 Months or Most Recently Relevant to Health Maintenance Results * Surgical pathology (10/13/2024 1:54 PM CDT) Tissue (Polyp(s), colon/colorectal, esophageal, gastric) 10/13/2024 11:17 AM CDT Narrative PATHOLOGY [facility] - 10/14/2024 12:41 PM CDT EPIC results best viewed via link to PDF [facility] Department of Pathology [address] [place] [address] Note to Patients: This report may contain [...] Final Report Patient Name: KIM ACEVEDO Address: [address] [place] [id number] Gender: F : 1975 (Age: 49) Service: Gastro Location: [facility] #: [id number] Patient Type: [facility] Taken: 10/13/2024 Received: 10/13/2024 Accessioned: 10/13/2024 Reported: [...] determined by the Surgical Pathology Department at [facility] as part of an ongoing machined parts quality inspector program and in compliance with federally mandated [...] characteristics determined by the Surgical Pathology Department [facility]. It has not been cleared or approved by the U. S. Food and Drug Administration. Note for decalcified specimens: This assay has not been validated on decalcified tissues. Results should be interpreted with caution given the possibility of false negativity on decalcified specimens Kole Ray DO LAB PATHOLOGY ORDERABLES Final Result PATHOLOGY [facility] [address] [place] [id number] * Colonoscopy (10/13/2024 10:35 AM CDT) Anatomical Region Laterality Modality Other Narrative Procedure Note Kole Rya DO - 10/13/2024 10:[address] [facility] Patient Name: Kim Tappy Procedure Date: 10/13/2024 10:35 AM Date of : 1975 Admit Type: Outpatient Age: 49 Gender: Female Attending MD: Kole Ray D.O. Room: [facility] ENDOSCOPY ROOM 3 Note Status: Finalized Patient [...] and retrieved. Clip (MRconditional) was placed. Clip powder line repairer: [employer]. - One 4 mm polyp in the [...] under direct vision. The Pediatric Colonoscope PCF-H190L [id number] was introducedthrough the anus and advanced to [...] hemostatic clip wassuccessfully placed (MR conditional). Clip powder line repairer: [employer]. Therewas no bleeding at the end of [...] 10:35 AM Procedure Code(s): --- Professional --- 38877, Colonoscopy, flexible; with removal of tumor(s), polyp(s), or other lesion(s) by snare technique --- Technical --- 77740, Colonoscopy, flexible; with removal of tumor(s), polyp(s), [...] perforation orabscess without bleeding CPT copyright 2020 [employer]. All rights reserved. The codes documented in this report are preliminary and upon awnings mechanic reviewmay be revised to meet current compliance requirements. Recognized by the [employer] for promoting quality [...] US Breast Left Limited (09/08/2024 3:47 PM HEM INSPECTOR) Anatomical Region Laterality Modality Breast Left Ultrasound 09/08/2024 3:57 PM HEM INSPECTOR Impressions 09/08/2024 3:57 PM HEM INSPECTOR No persistent asymmetry is seen within the [...] Janelle Wilson M.D. Narrative 09/08/2024 3:57 PM HEM INSPECTOR EXAMINATION: DIAGNOSTIC MAMMOGRAM BILATERAL W AXEL, US [...] Mammogram Bilateral W Axel (09/08/2024 2:56 PM HEM INSPECTOR) Anatomical Region Laterality Modality Breast Bilateral Mammography 09/08/2024 3:57 PM HEM INSPECTOR Impressions 09/08/2024 3:57 PM HEM INSPECTOR No persistent asymmetry is seen within the [...] Janelle Wilson M.D. Narrative 09/08/2024 3:57 PM HEM INSPECTOR EXAMINATION: DIAGNOSTIC MAMMOGRAM BILATERAL W AXEL, US [...] MAMMOGRAM BILATERAL W AXEL (08/26/2024 2:47 PM HEM INSPECTOR) Anatomical Region Laterality Modality Breast Bilateral Mammography 08/26/2024 4:01 PM HEM INSPECTOR Impressions 08/26/2024 4:01 PM HEM INSPECTOR Bilateral breast asymmetries require further evaluation with additional mammographic images and possible sonography. BI-RADS: BI-RADS Category 0: Incomplete - Need Additional Imaging Evaluation. The patient has been or will be contacted Electronically signed by: Janelle Wilson M.D. Narrative 08/26/2024 4:01 PM HEM INSPECTOR EXAMINATION: SCREENING MAMMOGRAM BILATERAL W AXEL ORDERING [...] Most Recently Relevant to Health Maintenance Insurance [facility] Advance Directives For more information, please contact: [phone] * Full Code (Latest Code Status on [...] in case of cardiopulmonary arrest Care Teams Systems Development Manager Relationship Specialty Start Date End Date Dirk Veloz MD [address] [facility] [address] [place] [address] PCP - General Family Medicine 04/23/23 Saturnino Mccrary MD [address] [facility] [address] [facility] [address] [place] [address] Director Meetings Obstetrics and Gynecology 02/08/20
--- OUTSIDE RECORDS SUMMARY | 2024-11-23 13:43 | XMS_ITS | Encounter Summary ---
Author Organization [facility] Address [address] [place] [address] Care Team Providers Care Police Academy Instructor Name Role Phone Saturnino Mccrary MD Unavailable [phone] Ga Veloz MD Primary Care Provider [phone] Encounter Details Date Type Department Care Team (Late st Contact Info) Description 10/14/2024 Results Follow-Up [facility] Gastroenterology at [address] [place] [address] Kole Ray, [address] [place] [address] Social History Tobacco Use Types Packs/Day Years Used Date Smoking Tobacco: Every Day Cigarettes 1.6 34.4 Started: 1990 Smokeless Tobacco: Never Alcohol Use [...] than three times a week 02/07/2020 Attends Yazid[employer] Services Not on file 02/06 Do you belong to any clubs o r organizations such as religion groups, unions, fraternal or athletic groups, or [...] on file 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 Gender Identity Not on file Sexual Orientation Not on file documented as of this encounter Miscellaneous Notes * Result Encounter Note - Carl Patel MA - 10/18/2024 8:02 AM CDT Results have been mailed, recall scheduled * Result Encounter Note - Carl Patel MA - 10/14/2024 1:25 PM CDT Called pt at [phone] unable to lvm documented in this encounter Plan of Treatment Not on file documented as of this encounter Visit Diagnoses Not on filedocumented in this encounter Care Teams [employer] Instructor Relationship Specialty Start Date End Date Ga Veloz MD [address] [facility] [address] [place] [address] PCP - General Family Medicine 04/23/23 Saturnino Mccrary MD [address] [facility] [address] [place] [address] Presser Hand Obstetrics and Gynecology 02/08/20 documented as of this encounter
--- OUTSIDE RECORDS SUMMARY | 2024-11-23 13:43 | XMS_ITS | Clinical Summary ---
Author Organization [facility] Address [address] [place] [address] Care Team Providers Care Produce Team Lead Name Role Phone Saturnino Mccrary MD Unavailable [phone] Dirk Veloz MD Primary Care Provider [phone] Allergies Active Allergy Reactions Criticality Noted Date [...] Department Care Team Description 10/14/2024 Results Follow-Up [facility] Gastroenterology at [address] [place] [address] Kole Ray, 10/13/2024 11:00 AM CDT - 10/13/2024 11:30 AM CDT Surgery [address] [address] Kole Ray, DO COLON REMOVAL SNARE 10/13/2024 10:49 AM CDT Anesthesia Event [address] [address] Иван Fairbanks MD 10/13/2024 10:02 AM CDT - 10/13/2024 11:59 AM CDT Hospital Encounter [address] [address] Kole Ray, DO Family hx of colon cancer requiring screening colonoscopy; Screening for colon cancer Discharge Disposition: Discharge to home or self care 10/12/2024 Telephone [facility] Gastroenterology at [address] [place] [address] Veronica Berrios MA 09/30/2024 Orders Only [facility] Primary Care at [address] [address] Dirk Veloz MD Abnormal mammogram (Primary Dx) 09/27/2024 Orders Only [facility] Primary Care at [address] [address] Dirk Veolz MD Abnormal mammogram (Primary Dx) 09/23/2024 Telephone [facility] Primary Care at [address] [address] Dirk Veloz MD Additional Services Or Orders 09/09/2024 Results Follow-Up [facility] Primary Care at [address] [address] Dirk Veloz MD 09/08/2024 2:33 PM HUC - 09/08/2024 11:59 PM HUC Hospital Encounter [address] [address] Abnormal mammogram Discharge Disposition: Discharge to home or self care 09/08/2024 2:33 PM HUC - 09/08/2024 11:59 PM HUC Hospital Encounter [facility] [address] [place] [address] Abnormal mammogram Discharge Disposition: Discharge to home or self care 09/02/2024 Orders Only [facility] Primary Care at [address] [place] [address] Dirk Veloz MD Abnormal mammogram (Primary Dx) 08/30/2024 Results Follow-Up [facility] Primary Care at [address] [place] [address] Dirk Veloz MD 08/26/2024 2:25 PM HUC - 08/26/2024 11:59 PM HUC Hospital Encounter [facility] [address] [place] [address] Encounter for screening mammogram for malignant neoplasm [...] Mother Colon cancer Paternal Grandmother Endometriosis Sister [place] Breast cancer Neg Hx Relation Name Status Comments Father Alive Mother Alive Paternal Grandfather Paternal Grandmother Sister [place] Alive Social History Tobacco Use Types Packs/Day [...] than three times a week 02/07/2020 Attends Jehovah'S Witness Services Not on file 02/06 Do you belong to any clubs o r organizations such as lutheran groups, unions, fraternal or athletic groups, or [...] on file Legal Sex Female 8:03 PM HUC Gender Identity Not on file Sexual Orientation [...] Read Routine (OP Routine) 09/08/2024 3:47 PM HUC Abnormal mammogram DIAGNOSTIC MAMMOGRAM BILATERAL W AXEL Schedule Routine, Read Routine (OP Routine) 09/08/2024 2:56 PM HUC Abnormal mammogram SCREENING MAMMOGRAM BILATERAL W AXEL Schedule Routine, Read Routine (OP Routine) 08/26/2024 2:47 PM HUC Encounter for screening mammogram for malignant neoplasm of breast HM PAP SMEAR WITH HPV Routine 04/23/2020 from Last 3 Months or Most Recently Relevant to Health Maintenance Results * Surgical pathology (10/13/2024 1:54 PM CDT) Tissue (Polyp(s), colon/colorectal, esophageal, gastric) 10/13/2024 11:17 AM CDT Narrative PATHOLOGY [facility] - 10/14/2024 12:41 PM CDT EPIC results best viewed via link to PDF [facility] Department of Pathology [address] [place] [address] Note to Patients: This report may contain [...] Final Report Patient Name: KIM ACEVEDO Address: [address] [place], [place] [id number] Gender: F : 1975 (Age: 49) Service: Gastro Location: [facility] Hospital #: [id number] Patient Type: [facility] Taken: 10/13/2024 Received: 10/13/2024 Accessioned: 10/13/2024 [...] determined by the Surgical Pathology Department at [facility] as part of an ongoing quality process auditor program and in compliance with federally mandated [...] characteristics determined by the Surgical Pathology Department [facility]. It has not been cleared or approved by the U. S. Food and Drug Administration. Note for decalcified specimens: This assay has not been validated on decalcified tissues. Results should be interpreted with caution given the possibility of false negativity on decalcified specimens us Kole Ray DO LAB PATHOLOGY ORDERABLES Final Result PATHOLOGY [facility] [address] [place], [place] [id number] * Colonoscopy (10/13/2024 10:35 AM CDT) Anatomical Region Laterality Modality Other Narrative Procedure Note Kole Ray DO - 10/13/2024 10:35 AM CDT Digest[facility] Patient Name: Kim Acevedo Procedure Date: 10/13/2024 10:35 AM Date of : 1975 Admit Type: Outpatient Age: 49 Gender: Female Attending MD: Kole Ray D.O. Room: [facility] ENDOSCOPY ROOM 3 Note Status: [...] and retrieved. Clip (MRconditional) was placed. 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 - One 4 mm polyp in the [...] under direct vision. The Pediatric Colonoscope PCF-H190L [id number] was introducedthrough the anus and advanced to [...] hemostatic clip wassuccessfully placed (MR conditional). 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 Therewas no bleeding at the end of [...] 10:35 AM Procedure Code(s): --- Professional --- 87666, Colonoscopy, flexible; with removal of tumor(s), polyp(s), or other lesion(s) by snare technique --- Technical --- 04841, Colonoscopy, flexible; with removal of tumor(s), polyp(s), [...] perforation orabscess without bleeding CPT copyright 2020 [employer]. All rights reserved. The codes documented in this report are preliminary and upon director of sales marketing reviewmay be revised to meet current compliance requirements. Recognized by the [employer] for promoting quality [...] US Breast Left Limited (09/08/2024 3:47 PM HUC) Anatomical Region Laterality Modality Breast Left Ultrasound 09/08/2024 3:57 PM HUC Impressions 09/08/2024 3:57 PM HUC No persistent asymmetry is seen within the [...] Janelle Wilson M.D. Narrative 09/08/2024 3:57 PM HUC EXAMINATION: DIAGNOSTIC MAMMOGRAM BILATERAL W AXEL, US [...] Mammogram Bilateral W Axel (09/08/2024 2:56 PM HUC) Anatomical Region Laterality Modality Breast Bilateral Mammography 09/08/2024 3:57 PM HUC Impressions 09/08/2024 3:57 PM HUC No persistent asymmetry is seen within the [...] signed by: Ayan Caputo 09/08/2024 3:57 PM HUC EXAMINATION: DIAGNOSTIC MAMMOGRAM BILATERAL W AXEL, US [...] MAMMOGRAM BILATERAL W AXEL (08/26/2024 2:47 PM HUC) Anatomical Region Laterality Modality Breast Bilateral Mammography 08/26/2024 4:01 PM HUC Impressions 08/26/2024 4:01 PM HUC Bilateral breast asymmetries require further evaluation with additional mammographic images and possible sonography. BI-RADS: BI-RADS Category 0: Incomplete - Need Additional Imaging Evaluation. The patient has been or will be contacted Electronically signed by: Janelle Wilson M.D. Narrative 08/26/2024 4:01 PM HUC EXAMINATION: SCREENING MAMMOGRAM BILATERAL W AXEL ORDERING [...] Advance Directives For more information, please contact: [phone] * Full Code (Latest Code Status on [...] in case of cardiopulmonary arrest Care Teams Produce Team Lead Relationship Specialty Start Date End Date Dirk Veloz MD [address] [facility] [address] [place] [address] PCP - General Family Medicine 04/23/23 Saturnino Mccrary MD [address] [facility] [address] [place] [address] Plasterer Foreman Obstetrics and Gynecology 02/08/20
[2024-11-23 13:47] LABS: EDSTREPNEGPOS1 Negative (Negative)
== END 2024-11-23 13:50 | disposition home or self-care (01) ==
PROVIDERS: Emergency Provider Nurse Practitioner Family; PCP Family Medicine
DX: H69.91 Unspecified Eustachian tube disorder, right ear (principal); J02.9 Acute pharyngitis, unspecified; F17.210 Nicotine dependence, cigarettes, uncomplicated
CPT/HCPCS: 87081; 87880; 99213; G0463